=== PATIENT | female | born 1955 | race African-American/Black ===

== ENCOUNTER 2024-06-23 15:42 | Outpatient (CLI) | payer OTHER, MEDICAID, SELFPAY ==
[2024-06-23 16:06] LABS: Basophils Percent Auto 0.2 % (0.2-1.2); Eosinophils Absolute Auto 0.1 K/mm3 (0-0.3); Eosinophils Percent Auto 1.2 % (0-4.4); Hematocrit 36.7 % (37.0-47.0); Hemoglobin 11.7 g/dL (12.0-15.0); Immature Granulocyte Absolute 0.01 K/mm3 (0.00-0.031); Immature Granulocyte Percent A 0.2 % (0-0.5); Lymphocytes Absolute Auto 2.35 K/mm3 (0.9-3.2); Lymphocytes Percent Auto 48.6 % (18.3-44.2); Mean Corpuscular HGB Conc 31.9 g/dl (32-36); Mean Corpuscular Hemoglobin 30.8 pg (26-34); Mean Corpuscular Volume 96.6 fl (80-100); Mean Platelet Volume 8.9 fl (7.4-10.4); Monocytes Absolute Auto 0.4 K/mm3 (0.1-0.6); Monocytes Percent Auto 8.7 % (2.6-8.5); Neutrophils Percent Auto 41.1 % (45.5-73.1); Platelet Count Result 269 k/mm3 (150-375); Red Cell Distribution Width 13.9 % (11.5-14.5); White Blood Count 4.8 K/mm3 (4.5-10.0)
[2024-06-23 16:19] LABS: Alanine Aminotransferase 11 U/L (6-35); Albumin Level 4.5 g/dL (3.5-5.1); Alkaline Phosphatase 94 U/L (38-126); Anion Gap 7 mmol/L (4-12); Aspartate Amino Transferase 21 U/L (14-36); Bilirubin,Total 0.3 mg/dL (0.2-1.3); Blood Urea Nitrogen 10 mg/dL (7-17); Calcium 9.6 mg/dL (8.4-10.2); Carbon Dioxide 30 mmol/L (22-30); Chloride 100 mmol/L (98-107); Cholesterol 224 mg/dL (0-200); Estimated Glomerular Filt Rate > 60; Glucose 84 mg/dL (65-110); HDL Direct 62 mg/dL; Potassium 4.1 mmol/L (3.4-5.0); Sodium 137 mmol/L (137-145); Triglycerides 111 mg/dL (<150)
[2024-06-23 16:30] LABS: LDL Cholesterol Direct 112 mg/dL
[2024-06-23 16:48] LABS: Total Triiodothyronine (T3) 1.14 NG/ML (0.97-1.69)
== END 2024-06-23 15:43 | disposition home or self-care (01) ==
PROVIDERS: PCP Family Medicine; Visit Provider Family Medicine
DX: R53.83 Other fatigue (principal); E78.5 Hyperlipidemia, unspecified
CPT/HCPCS: 36415; 80053; 80061; 84439; 84443; 84480; 85025

== ENCOUNTER 2024-07-14 10:16 | Outpatient (CLI) | payer OTHER, SELFPAY ==
--- NOTE | ~2024-07-14 | MR_ITS ---
MRI of the right knee Clinical history: Injury Technique: Coronal proton density and proton density-weighted images, sagittal proton-density and T2 fat-sat images, and axial proton-density fat-saturated images were acquired. Findings: Anterior and posterior cruciate ligaments are intact. Medial collateral ligament and the la teral collateral ligament complex are intact. Popliteus tendon is intact. Medial and lateral menisci are intact, without evidence of tear. There is diffuse mild to moderate tricompartmental chondral thinning. Bone marrow signals are unremar kable. Extensor mechanism is intact. No joint effusion. Tiny Aaron's cyst. Impression: Mild to moderate diffuse chondral thinning. Tiny Aaron's cyst. No acute abnormality evident. Reviewed, dictated and finalized at location M. SE MACHINE OPERATOR Impression: Mild to moderate diffuse chondral thinning. Tiny Aaron's cyst. No acute abnormality evident.
== END 2024-07-14 10:17 | disposition home or self-care (01) ==
LOC: ANHIMG 10:22
PROVIDERS: PCP Family Medicine; Visit Provider Orthopaedic Surgery
DX: S89.91XA Unspecified injury of right lower leg, initial encounter (principal); X58.XXXA Exposure to other specified factors, initial encounter
CPT/HCPCS: 73721

== ENCOUNTER 2025-02-17 12:53 | Outpatient (CLI) | payer MEDICARE, MEDICAID, SELFPAY ==
--- NOTE | ~2025-02-17 | XR_ITS ---
XR foot LT min 3V 02/17/2025 13:42 Indication: Left foot pain. Procedure: 4 views left foot Comparison: No prior studies for comparison. Findings: There is fusion of the first and fifth phalanges. There is a deformity of the fourth metata rsal head which may be due to remote trauma or developmental disorder. No acute fracture is identifie d. There are degenerative calcaneal enthesophytes. Lisfranc joint intact. No foreign bodies. Impression: 1: No acute bone or joint abnormality. Reviewed, dictated and finalized at location B. Impression: 1: No acute bone or joint abnormality.
--- OUTSIDE RECORDS SUMMARY | 2025-02-17 13:10 | XMS_ITS | Clinical Summary ---
Author Organization 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 Gender Identity Not on file Sexual Orientation Not on file Plan of Treatment Health Maintenance Due Date Last Done Comments Hepatitis C Virus (HCV) Screening 1955 TdaP Immunization 1955 Colonoscopy 1999 Colorectal Cancer Screening 1999 Cologuard 02/08/2004 Immunochemical Fecal Occult Blood 02/08/2004 Zoster Immunization (1 of 2) 02/08/2004 SARS-COV-2 Immunization ( season) 2024 08/08/2021, 11/20/2020, 10/26/2020 Influenza Immunization (Seas on Ended) 2025 09/28/2020, 06/17/2020 Pneumococcal Immunization (5 0+ years) (3 of 3 - PCV20 or PCV21) 09/28/2025 09/28/2020, 07/25/2014 Respiratory Syncytial Virus (RSV) Immunization (Adult) (1 - 1-dose 75+ series) 2029 Pneumococcal Immunization Combined Discontinued 09/28/2020, 07/25/2014 Hepatitis B Immunization Aged Out No longer eligible based on patient's age to complete this topic Human Papillomavirus (HPV) Immunization Aged Out No longer eligible based on patient's age to complete this topic Meningococcal Immunization (ACWY) Aged Out No longer eligible based on patient's age to complete this topic Rotavirus Immunization Aged Out No lo nger eligible based on patient's age to complete this topic
--- OUTSIDE RECORDS SUMMARY | 2025-02-17 13:10 | XMS_ITS | Data Portability ---
Author Organization EDITH Charley WRIGHT Address [address] [facility] [place] [address] Care Team Providers Care Brusher Machine Name Role Phone GINANORAMARA Primary Care Provider Unavailab le Assessment No assessment recorded. Plan of Treatment Reminders Order Date Submit Date Provider Last Modified By Organization Details Last Modified Time Details Appointments None recorded. Lab TSH + free T4, serum 2020 [facility], [address] [place] [address], [address], [place], [address], 13:11:40 HIV 1+2 AB + HIV 1 p24 Ag, qualitativ e immunoassa y, serum 2020 021 [facility], [address] [place] [address], [address], [place], [address], 13:11:45 HbA1c (hemoglobi n A1c), blood 2020 021 [facility], [address] [place] [address], [address], [place], [address], 13:11:44 vitamin B12 + folate, serum or blood 2020 [address] [facility], [address] [place] [address], [address], [place], [address], 13:11:43 urinalysis , complete 2020 021 [facility], [address] [place] [address] [place], [address], [place], [address], 13:11:43 CBC w/ auto diff 2020 [facility], [address] [facility], [address], [place], [address], 13:11:41 CMP, serum or plasma 2020 [facility], [address] [facility], [address], [place], [address], 13:11:42 SARS CoV 2 RNA (COVID-19) , QL, grants assistant-PCR, respirator y specimen 2020 [facility] (Lab), [address] [place], [address], 16:55:36 Referral None recorded. Procedures None recorded. Surgeries None recorded. Imaging XR, foot 2020 [facility] (Rad), [address], [place], [address], 10:49:58 MAMMO, screening, digital, bilateral 2020 [facility] Scheduling, [address] [facility], [place], [address], 2 10:00:32 US, thyroid 2020 [facility] Scheduling, [address] [facility], [place], [address], 11:16:08 LDCT, chest, for lung cancer screening - Please call patient to schedule 2020 [facility] Scheduling, [address] [facility] [address], [place], [address], 2 05:01:25 spirometry , pre and post bronchodil ation 2020 021 [email or web address] [facility] (Rad), [address], [place], [address], 2 09:59:59 PFT, pulmonary stress test 2020 021 [email or web address] [facility] (Rad), [address], [place], [address], 2 10:00:00 US, echocardio gram, transthora cic, complete, w/ color flow 2020 021 [email or web address] [facility] (Rad), [address], [place], [address], 13:02:53 Medication Orders gabapentin 300 mg capsule 2020 021 [facility] [id number] [place] [address], [address], 10:48:53 gabapentin 100 mg capsule 2020 021 [id number], [address] [place], [place], [id number], 10:19:59 ibuprofen 600 mg tablet 2020 021 [facility] [address] [place] [address], [address], 11:14:14 Patient TargetsNo targets recorded. Patient Instructions Encounter Date Encounter Id Patient Instructions Last Modified By Organization Details Last Modified Time 02/11/2021 [id number] echocardiogram info [email or web address] Not available 02/11/2021 11:28:10 07/11/2021 [id number] plantar warts: care instructions fharry Not available 07/11/2021 11:19:34 toenail fungus: care instructions fharry Not available 07/11/2021 10:19:52 07/25/2021 [id number] plantar warts: care instructions fharry Not available 07/25/2021 10:48:48 toenail fungus: care instructions fharry Not available 07/25/2021 10:48:48 Reason for Referral None Reported. Results Created Date Observation Date Name Description Value Unit Range Abnormal Flag Note LastModifiedBy Organization Detail LastModifiedTime 03/26/2003/27/2021 TSH+F REE T4 TSH 0.857 uIU/m L 0.450- 4.500 Not Available [facility] ([facility]) [address] [place], [address], 03/27/2021 13:11:40 03/26/2003/27/2021 TSH+F REE T4 T4,free(dire ct) 0.99 NG/dL 0.82-1 .77 Not Available [facility] ([facility]) [address] [place], [address], 03/27/2021 13:11:40 03/26/20 21 03/27/2021 CBC WITH DIFFE RENTI AL/PL ATELE T WBC 6.0 x10e3 /uL 3.4-10 .8 Not Available [facility] ([facility]) [address] [place], [address], 03/27/2021 13:11:41 03/26/2003/27/2021 CBC WITH DIFFE RENTI AL/PL ATELE T RBC 3.81 x10e6 /uL 3.77-5 .28 Not Available [facility] ([facility]) [address] [place], [address], 03/27/2021 13:11:41 03/26/20 21 03/27/2021 CBC WITH DIFFE RENTI AL/PL ATELE T hemoglobin 10.9 g/dL 11.1-1 5.9 below low normal Not Available [facility] ([facility]) [address] [place], [address], 03/27/2021 13:11:41 03/26/20 21 03/27/2021 CBC WITH DIFFE RENTI AL/PL ATELE T hematocrit 34.3 % 34.0-4 6.6 Not Available [facility] ([facility]) [address] [place], [address], 03/27/2021 13:11:41 03/26/20 21 03/27/2021 CBC WITH DIFFE RENTI AL/PL ATELE T MCV 90 fL 79-97 Not Available [facility] ([facility]) [address] [place], [address], 03/27/2021 13:11:41 03/26/20 21 03/27/2021 CBC WITH DIFFE RENTI AL/PL ATELE T MCH 28.6 pg 26.6-3 3.0 Not Available [facility] ([facility]) [address] [place], [address], 03/27/2021 13:11:41 03/26/20 21 03/27/2021 CBC WITH DIFFE RENTI AL/PL ATELE T MCHC 31.8 g/dL 31.5-3 5.7 Not Available [facility] ([facility]) [address] [place], [address], 03/27/2021 13:11:41 03/26/20 21 03/27/2021 CBC WITH DIFFE RENTI AL/PL ATELE T RDW 13.7 % 11.7-1 5.4 Not Available [facility] ([facility]) [address] [place], [address], 03/27/2021 13:11:41 03/26/20 21 03/27/2021 CBC WITH DIFFE RENTI AL/PL ATELE T platelets 335 x10e3 /uL 150-45 0 Not Available [facility] ([facility]) [address] [facility], [place], [address], 03/27/2021 13:11:41 03/26/20 21 03/27/2021 CBC WITH DIFFE RENTI AL/PL ATELE T neutrophils 41 % not estab. Not Available [facility] ([facility]) [address] [facility], [place], [address], 03/27/2021 13:11:41 03/26/20 21 03/27/2021 CBC WITH DIFFE RENTI AL/PL ATELE T lymphs 51 % not estab. Not Available [facility] ([facility]) [address] [facility], [place], [address], 03/27/2021 13:11:41 03/26/20 21 03/27/2021 CBC WITH DIFFE RENTI AL/PL ATELE T monocytes 5 % not estab. Not Available [facility] ([facility]) [address] [facility], [place], [address], 03/27/2021 13:11:41 03/26/20 21 03/27/2021 CBC WITH DIFFE RENTI AL/PL ATELE T eos 2 % not estab. Not Available [facility] ([facility]) [address] [facility], [place], [address], 03/27/2021 13:11:41 03/26/20 21 03/27/2021 CBC WITH DIFFE RENTI AL/PL ATELE T basos 1 % not estab. Not Available [facility] ([facility]) [address] [place], [address], 03/27/2021 13:11:41 03/26/20 21 03/27/2021 CBC WITH DIFFE RENTI AL/PL ATELE T immature cells BROADCAST MAINTENANCE TECHNICIAN Not Available [facility] ([facility]) [address] [facility], [place], [address], 03/27/2021 13:11:41 03/26/20 21 03/27/2021 CBC WITH DIFFE RENTI AL/PL ATELE T neutrophils (absolute) 2.5 x10e3 /uL 1.4-7. 0 Not Available [facility] ([facility]) [address] [facility], [place], [address], 03/27/2021 13:11:41 03/26/20 21 03/27/2021 CBC WITH DIFFE RENTI AL/PL ATELE T lymphs (absolute) 3.1 x10e3 /uL 0.7-3. 1 Not Available [facility] ([facility]) [address] [place], [address], 03/27/2021 13:11:41 03/26/20 21 03/27/2021 CBC WITH DIFFE RENTI AL/PL ATELE T monocytes(ab solute) 0.3 x10e3 /uL 0.1-0. 9 Not Available [facility] ([facility]) [address] [place], [address], 03/27/2021 13:11:41 03/26/20 21 03/27/2021 CBC WITH DIFFE RENTI AL/PL ATELE T eos (absolute) 0.1 x10e3 /uL 0.0-0. 4 Not Available [facility] ([facility]) [address] [place], [address], 03/27/2021 13:11:41 03/26/20 21 03/27/2021 CBC WITH DIFFE RENTI AL/PL ATELE T baso (absolute) 0.0 x10e3 /uL 0.0-0. 2 Not Available [facility] ([facility]) [address] [place], [address], 03/27/2021 13:11:41 03/26/20 21 03/27/2021 CBC WITH DIFFE RENTI AL/PL ATELE T immature granulocytes 0 % not estab. Not Available [facility] ([facility]) [address] [facility], [place], [address], 03/27/2021 13:11:41 03/26/20 21 03/27/2021 CBC WITH DIFFE RENTI AL/PL ATELE T immature grans (abs) 0.0 x10e3 /uL 0.0-0. 1 Not Available [facility] ([facility]) [address] [facility], [place], [address], 03/27/2021 13:11:41 03/26/20 21 03/27/2021 CBC WITH DIFFE RENTI AL/PL ATELE T NRBC BROADCAST MAINTENANCE TECHNICIAN Not Available [facility] ([facility]) [address] [facility], [place], [address], 03/27/2021 13:11:41 03/26/20 21 03/27/2021 CBC WITH DIFFE RENTI AL/PL ATELE T hematology comments: BROADCAST MAINTENANCE TECHNICIAN Not Available [facility] ([facility]) [address] [facility], [place], [address], 03/27/2021 13:11:41 03/26/20 21 03/27/2021 COMP. METAB OLIC PANEL (14) glucose 72 mg/dL 65-99 Not Available [facility] ([facility]) [address] [facility], [place], [address], 03/27/2021 13:11:42 03/26/20 21 03/27/2021 COMP. METAB OLIC PANEL (14) BUN 6 mg/dL 8-27 below low normal Not Available [facility] ([facility]) [address] [facility], [place], [address], 03/27/2021 13:11:42 03/26/20 21 03/27/2021 COMP. METAB OLIC PANEL (14) creatinine 0.67 mg/dL 0.57-1 .00 Not Available [facility] ([facility]) [address] [facility], [place], [address], 03/27/2021 13:11:42 03/26/20 21 03/27/2021 COMP. METAB OLIC PANEL (14) eGFR if nonafricn AM 91 mL/mi n/1.7 3 >59 Not Available [facility] ([facility]) [address] [place], [address], 03/27/2021 13:11:42 03/26/20 21 03/27/2021 COMP. METAB OLIC PANEL (14) eGFR if africn AM 105 mL/mi n/1.7 3 >59 Lab taqueria curre ntly repor ts eGFR in compl iance with the curre nt recom menda tions of the [employer] [facility] ation . [facility] will updat e repor ting as new guide lines are publi shed from the NKF-A SN Task force . Not Available [facility] ([facility]) [address] [place], [address], 03/27/2021 13:11:42 03/26/20 21 03/27/2021 COMP. METAB OLIC PANEL (14) BUN/creatini ne ratio 9 12-28 below low normal Not Available [facility] ([facility]) [address] [place], [address], 03/27/2021 13:11:42 03/26/20 21 03/27/2021 COMP. METAB OLIC PANEL (14) sodium 141 mmol/ L 134-14 4 Not Available [facility] ([facility]) [address] [place], [address], 03/27/2021 13:11:42 03/26/20 21 03/27/2021 COMP. METAB OLIC PANEL (14) potassium 4.0 mmol/ L 3.5-5. 2 Not Available [facility] ([facility]) [address] [place], [address], 03/27/2021 13:11:42 03/26/20 21 03/27/2021 COMP. METAB OLIC PANEL (14) chloride 104 mmol/ L 96-106 Not Available [facility] ([facility]) [address] [facility] [place], [address], 03/27/2021 13:11:42 03/26/20 21 03/27/2021 COMP. METAB OLIC PANEL (14) carbon dioxide, total 23 mmol/ L 20-29 Not Available [facility] ([facility]) [address] [facility] [place], [address], 03/27/2021 13:11:42 03/26/20 21 03/27/2021 COMP. METAB OLIC PANEL (14) calcium 9.5 mg/dL 8.7-10 .3 Not Available [facility] ([facility]) [address] [facility] [place], [address], 03/27/2021 13:11:42 03/26/20 21 03/27/2021 COMP. METAB OLIC PANEL (14) protein, total 7.3 g/dL 6.0-8. 5 Not Available [facility] ([facility]) [address] [facility] [place], [address], 03/27/2021 13:11:42 03/26/20 21 03/27/2021 COMP. METAB OLIC PANEL (14) albumin 4.2 g/dL 3.8-4. 8 Not Available [facility] ([facility]) [address] [facility] [place], [address], 03/27/2021 13:11:42 03/26/20 21 03/27/2021 COMP. METAB OLIC PANEL (14) globulin, total 3.1 g/dL 1.5-4. 5 Not Available [facility] ([facility]) [address] [facility] [place], [address], 03/27/2021 13:11:42 03/26/20 21 03/27/2021 COMP. METAB OLIC PANEL (14) A/G ratio 1.4 1.2-2. 2 Not Available [facility] ([facility]) [address] [facility] [place], [address], 03/27/2021 13:11:42 03/26/20 21 03/27/2021 COMP. METAB OLIC PANEL (14) bilirubin, total 0.3 mg/dL 0.0-1. 2 Not Available [facility] ([facility]) [address] [facility] [place], [address], 03/27/2021 13:11:42 03/26/20 21 03/27/2021 COMP. METAB OLIC PANEL (14) alkaline phosphatase 106 IU/L 48-121 Not Available [facility]) [address] [facility] [place], [address], 03/27/2021 13:11:42 03/26/20 21 03/27/2021 COMP. METAB OLIC PANEL (14) AST (SGOT) 14 IU/L 0-40 Not Available [facility] ([facility]) [address] [facility] [place], [address], 03/27/2021 13:11:42 03/26/20 21 03/27/2021 COMP. METAB OLIC PANEL (14) ALT (SGPT) 10 IU/L 0-32 Not Available [facility] ([facility]) [address] [place], [address], 03/27/2021 13:11:42 03/26/20 21 03/27/2021 URINA LYSIS , COMPL ETE specific gravity 1.022 1.005- 1.030 Not Available [facility] ([facility]) [address] [place], [address], 03/27/2021 13:11:43 03/26/20 21 03/27/2021 URINA LYSIS , COMPL ETE pH 5.5 5.0-7. 5 Not Available [facility] ([facility]) [address] [place], [address], 03/27/2021 13:11:43 03/26/20 21 03/27/2021 URINA LYSIS , COMPL ETE urine-color Yellow yellow Not Available [facility] ([facility]) [address] [place], [address], 03/27/2021 13:11:43 03/26/20 21 03/27/2021 URINA LYSIS , COMPL ETE appearance Cloudy clear abnormal Not Available [facility] ([facility]) [address] [place], [address], 03/27/2021 13:11:43 03/26/20 21 03/27/2021 URINA LYSIS , COMPL ETE WBC esterase 2+ negati ve abnormal Not Available [facility] ([facility]) [address] [place], [address], 03/27/2021 13:11:43 03/26/20 21 03/27/2021 URINA LYSIS , COMPL ETE protein Trace negati ve/tra ce Not Available [facility] ([facility]) [address] [place], [address], 03/27/2021 13:11:43 03/26/20 21 03/27/2021 URINA LYSIS , COMPL ETE glucose Negati ve negati ve Not Available [facility] ([facility]) [address] [place], [address], 03/27/2021 13:11:43 03/26/20 21 03/27/2021 URINA LYSIS , COMPL ETE ketones Negati ve negati ve Not Available [facility] ([facility]) [address] [place], [address], 03/27/2021 13:11:43 03/26/20 21 03/27/2021 URINA LYSIS , COMPL ETE occult blood Trace negati ve abnormal Not Available [facility] ([facility]) [address] [place], [address], 03/27/2021 13:11:43 03/26/20 21 03/27/2021 URINA LYSIS , COMPL ETE bilirubin Negati ve negati ve Not Available [facility] ([facility]) [address] [place], [address], 03/27/2021 13:11:43 03/26/2003/27/2021 URINA LYSIS , COMPL ETE urobilinogen ,semi-qn 1.0 mg/dL 0.2-1. 0 Not Available [facility] ([facility]) [address] [place], [address], 03/27/2021 13:11:43 03/26/20 21 03/27/2021 URINA LYSIS , COMPL ETE nitrite, urine Negati ve negati ve Not Available [facility] ([facility]) [address] [place], [address], 03/27/2021 13:11:43 03/26/20 21 03/27/2021 URINA LYSIS , COMPL ETE microscopic examination See below: Micro scopi c was indic ated and was perfo rmed. Not Available [facility] ([facility]) [address] [facility], [place], [address], 03/27/2021 13:11:43 03/26/2003/27/2021 URINA LYSIS , COMPL ETE WBC >30 /hpf 0 - 5 abnormal Not Available [facility] ([facility]) [address] [place], [address], 03/27/2021 13:11:43 03/26/2003/27/2021 URINA LYSIS , COMPL ETE RBC 0-2 /hpf 0 - 2 Not Available [facility] ([facility]) [address] [place], [address], 03/27/2021 13:11:43 0703/27/2021 URINA LYSIS , COMPL ETE epithelial cells (non renal) 0-10 /hpf 0 - 10 Not Available [facility] ([facility]) [address] [facility], [place], [address], 03/27/2021 13:11:43 03/26/20 21 03/27/2021 URINA LYSIS , COMPL ETE epithelial cells (renal) BROADCAST MAINTENANCE TECHNICIAN Not Available [facility] ([facility]) [address] [facility], [place], [address], 03/27/2021 13:11:43 03/26/20 21 03/27/2021 URINA LYSIS , COMPL ETE casts None seen /lpf none seen Not Available [facility] ([facility]) [address] [facility], [place], [address], 03/27/2021 13:11:43 03/26/20 21 03/27/2021 URINA LYSIS , COMPL ETE cast type BROADCAST MAINTENANCE TECHNICIAN Not Available [facility] ([facility]) [address] [facility], [place], [address], 03/27/2021 13:11:43 03/26/2003/27/2021 URINA LYSIS , COMPL ETE crystals BROADCAST MAINTENANCE TECHNICIAN Not Available [facility] ([facility]) [address] [facility], [place], [address], 03/27/2021 13:11:43 03/26/2003/27/2021 URINA LYSIS , COMPL ETE crystal type BROADCAST MAINTENANCE TECHNICIAN Not Available [facility]) [address] [facility], [place], [address], 03/27/2021 13:11:43 03/26/20 21 03/27/2021 URINA LYSIS , COMPL ETE mucus threads BROADCAST MAINTENANCE TECHNICIAN Not Available [facility] ([facility]) [address] [place], [address], 03/27/2021 13:11:43 03/26/20 21 03/27/2021 URINA LYSIS , COMPL ETE bacteria Few none seen/f ew Not Available [facility] ([facility]) [address] [facility], [place], [address], 03/27/2021 13:11:43 03/26/20 21 03/27/2021 URINA LYSIS , COMPL ETE yeast BROADCAST MAINTENANCE TECHNICIAN Not Available [facility] ([facility]) [address] [place], [address], 03/27/2021 13:11:43 03/26/20 21 03/27/2021 URINA LYSIS , COMPL ETE trichomonas BROADCAST MAINTENANCE TECHNICIAN Not Available [facility] ([facility]) [address] [place], [address], 03/27/2021 13:11:43 03/26/20 21 03/27/2021 URINA LYSIS , COMPL ETE comment BROADCAST MAINTENANCE TECHNICIAN Not Available [facility] ([facility]) [address] [place], [address], 03/27/2021 13:11:43 03/26/20 21 03/27/2021 URINA LYSIS , COMPL ETE microscopic examination BROADCAST MAINTENANCE TECHNICIAN Not Available [facility]) [address] [place], [address], 03/27/2021 13:11:43 03/26/20 21 03/27/2021 VITAM IN B12 AND FOLAT E vitamin B12 428 pg/mL 232-12 45 Not Available [facility] ([facility]) [address] [place], [address], 03/27/2021 13:11:43 03/26/20 21 03/27/2021 VITAM IN B12 AND FOLAT E folate (folic acid), serum 5.7 NG/mL >3.0 A serum folat e holly ntrat ion of less than 3.1 ng/mL is consi dered to repre sent clini manav defic iency . Not Available [facility] ([facility]) [address] [place], [address], 03/27/2021 13:11:43 03/26/20 21 03/27/2021 HEMOG LOBIN A1C hemoglobin A1C 5.9 % 4.8-5. 6 above high normal Predi abete s: 5.7 - 6.4 Diabe mark: >6.4 Glyce nereyda contr ol for adult s with diabe mark: <7.0 Not Available [facility] ([facility]) [address] [facility], [place], [address], 03/27/2021 13:11:44 03/26/20 21 03/27/2021 HIV AG/AB WITH REFLE X HIV screen 4TH generation wrfx Non Reacti ve non reacti ve Not Available [facility] ([facility]) [address] [facility], [place], [address], 03/27/2021 13:11:45 02/07/20 21 01/23/2021 CT, thora cic spine , w/o contr ast No observ ation record ed. [email or web address] Not Available 2020 15:57:50 02/07/20 21 01/23/2021 CT, lumba r spine , w/o contr ast No observ ation record ed. Not Available 2020 16:50:32 02/07/20 21 01/23/2021 XR, shoul leslye, 2 or more view No observ ation record ed. [email or web address] Not Available 2020 16:50:33 03/19/20 21 02/12/2021 MRI, cervi manav spine , w/o contr ast No observ ation record ed. [facility] [address] [place], [address], 03/20/2021 14:24:12 03/19/20 21 02/12/2021 MRI, lumba r spine , w/o contr ast No observ ation record ed. [facility] [address] [place], [address], 03/20/2021 14:24:13 03/27/20 21 03/26/2021 elect rocbuster diogr am No observ ation record ed. [facility] Not Available 2020 18:18:10 03/28/20 21 03/26/2021 elect rocbuster diogr am No observ ation record ed. [facility] Not Available 2020 12:20:43 07/11/20 21 07/11/2021 XR, foot Examin ation: RIGHT FOOT RADIOG RAPH Access ion: [id number] Exam date/t juju: 021 9:29 AM Reason For Exam: [id number]: Pain in right foot Compar olivia: 015 Techni que: 3 views Findin gs: No acute soft tissue swelli ng. Postsu rgical change s throug hout the foot. Old healed injuri es of the first and fifth metata rsal bones. No eviden ce of an acute fractu re. Osseou s fusion of the first interp halang eal joint with previo us remova l of hardwa re. No acute findin gs. ===== IMPRES USHA:= ==== Multif ocal postsu rgical change s, no acute findin gs. READ BY: ARLYN MERINO MD Date: 2020 09:[address], [address], 07/12/2021 12:59:25 Result Notes Documentation Provider Name and Address Organization Details Recorded Time Xr, Foot : Examination: RIGHT FOOT RADIOGRAPH Exam date/time: 07/11/2021 9:29 AM Reason For Exam: [id number]: Pain in right foot Comparison: 05/21/2015 Technique: 3 views Findings: No acute soft tissue swelling. Postsurgical changes throughout the foot. Old healed injuries of the first and fifth metatarsal bones. No evidence of an acute fracture. Osseous fusion of the first interphalangeal joint with previous removal of hardware. No acute findings. ===== IMPRESSION:===== Multifocal postsurgical changes, no acute findings. READ BY: TONI MERINO MDEEN Date: 07/11/2021 09:48 OCTAVIA ANDERSON, DPM [address] [place], [address], [place] [facility] 07/12/2021 12:59:25 Problems Name Problem SNOMED Code Status Onset Date Resolution Date Notes Provider Name and Address Organization Details Recorded Time Knee pain Completed 09/28/2020 Warren Wells PA-C Attn: Accounting ,[address] [facility], [place], [address] , [facility] 11:58:13 Gastroeso phageal reflux disease 610204827 Completed 09/28/2020 Warren Wells PA-C Attn: Accounting ,[address] [facility], [place], [address] , [facility] - [facility] 12:00:06 Bipolar disorder [id number] Active Not Available [facility] 15:52:49 Chronic obstructi ve pulmonary disease 55035144 Active Not Available [facility] 15:52:49 Prediabet es 735511215 Active 2020 Not Available [facility] 15:52:49 History of cocaine abuse [id number] 9106 Active 2020 Not Available [facility] 15:52:49 Noncompli ance with treatment 2331007 Active 2020 Warren Wells PA-C Attn: Accounting ,[address] [facility], [place], [address] , [facility] - [facility] 12:17:53 Spasm [id number] Completed 09/28/2020 Warren Wells PA-C Attn: Accounting ,[address] [facility], [place], [address] , [facility] - [facility] 12:00:21 Dysuria 69384183 Completed 09/28/2020 Warren Wells PA-C Attn: Accounting ,[address] [facility], [place], [address] , [facility] - SI 11:32:44 Urinary tract infectiou s disease 44490843 Completed 09/28/2020 Warren Wells PA-C Attn: Accounting ,[address] [facility], [place], [place], [address] [place] [address] , [facility] - [place] 11:58:26 Trichomon al vulvovagi nitis 78984754 Completed 09/28/2020 Warren Wells PA-C Attn: Accounting ,[address] [facility], [place], [place], [address] [place] [address] , [facility] - [facility] 11:58:22 Hemoptysi s 56027093 Completed 09/28/2020 Warren Wells PA-C Attn: Accounting ,[address] [place], [place], [address] [place] [address] , [facility] - [facility] 11:58:10 Nicotine dependenc e 70379700 Active Not Available [facility] 15:52:49 Abnormal weight loss 614791239 Active Not Available [facility] 15:52:49 Dyspnea 814787707 Completed 09/28/2020 Warren Wells PA-C Attn: Accounting ,[address] [facility], [place], [place], [address] [place] [address] , [facility] - [facility] 11:58:07 Night sweats 58554078 Completed 09/28/2020 Warren Wells PA-C Attn: Accounting ,[address] [facility], [place], [place], [address] [place] [address] , [facility] - [facility] 12:00:17 Cramp in lower limb 810161165 Completed 09/28/2020 Warren Wells PA-C Attn: Accounting ,[address] [facility], [place], [place], [address] [place] [address] , [facility] - [facility] 11:58:04 Essential hypertens ion 01665531 Completed 09/28/2020 Warren Wells PA-C Attn: Accounting ,[address] [facility], [place], [place], [address] [place] [address] , [facility] - [facility] 12:00:08 Low back pain 459806032 Completed 09/28/2020 Warren Wells PA-C Attn: Accounting ,[address] [facility], [place], [address] , [place] 11:58:15 Problem Notes None recorded. Procedures Surgical History Date Name Laterality Status Provider Name and Address Organization Details Recorded Time 07/25/20 21 Wart Topical Procedure completed OCTAVIA ANDERSON DPM [address], [place], [address], [place] [facility] 07/25/2021 10:46:52 07/11/20 21 Nail Debridement completed OCTAVIA ANDERSON DPM [address], [place], [address], [place] [facility] 07/11/2021 11:15:57 07/11/20 21 Wart Topical Procedure completed OCTAVIA ANDERSON DPM [address], [place], [address], [place] [facility] 07/11/2021 11:18:02 01/26/20 21 Nail Debridement completed OCTAVIA ANDERSON DPM [address], [place], [address], [place] [facility] 01/28/2021 09:52:56 11/28/19 21 CORRECTION OF HAMMERTOE (SURG) completed OCTAVIA ANDERSON DPM [address], [place], [address], [place] [facility] 12/10/2020 16:25:17 11/10/19 21 Nail Debridement completed OCTAVIA ANDERSON DPM [address], [place], [address], [place] [facility] 11/09/2020 14:36:46 09/07/18 78 Total hysterectomy completed Warren Wells PA-C Attn: Accounting,[address] [facility], [place], [address], [place] [facility] 09/28/2020 12:02:47 Xcapsl ctrc rmvl cplx wo ecp completed Warren Wells PA-C Attn: Accounting,[address] [facility], [place], [address], [place] [facility] 09/28/2020 12:02:17 excision of bunion completed Warren Wells PA-C Attn: Accounting,[address], [place], [address], [facility] 09/28/2020 12:02:23 Imaging Results None recorded. Procedure Notes None recorded. Medical Equipment None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
--- OUTSIDE RECORDS SUMMARY | 2025-02-17 13:10 | XMS_ITS ---
Author Organization [facility] Address [address] [place], [place] [id number] Care Team Providers Care Carburetor Specialist Name Role Phone MARINA MEDRANO Unavailable [phone] Jacinto Johnson Unavailable Unavailable REASON FOR VISIT *General care Encounters Encounter Location Date Provider Diagnosis [facility] [address] [facility] [address] [place], [place] [id number] 10/07/2024 MARINA MEDRANO Plan Of Treatment No Information Progress Notes * Chika PAVONB: (70 yo Other)Acc No.[id number]:10/07/2024 Patient: Shawn HASSAN Provider: Leo Medrano DPM :1955 A ge:69 Y S ex:Unknown Date:10/07/2024 Address:[address], [place] Subjective: * Chief Complaints: * 1 . *General care. * Medical History: Objective: * Vitals: Assessment: Plan: * Treatment: * Billing Information: * Visit Code: * Procedure Codes: * Electronic signature of MARINA MEDRANO DPM on 02/17/2025 at 01:09 PM CDT Sign off status: Pending * Provider: Leo Medrano DPM Date: 0 10/07/2024 Generated for Leti patel/Ashley/eTransmitting on: 0 02/17/2025 01:09 PM CDT
--- OUTSIDE RECORDS SUMMARY | 2025-02-17 13:10 | XMS_ITS | Patient Health Record ---
Author Organization [facility] Address [address] [facility] [address] [place], [place] [id number] Care Team Providers Care Corporate Real Estate Specialist Name Role Phone MARINA CLAROS Unavailable [phone] Jacinto Johnson Unavailable Unavailable INGE LEE Unavailable [phone] Allergies No Known Allergies Reason For Referral No Information Encounters Encounter Location Date Provider Diagnosis [facility] [place] [address] [facility] [address] [place], [place] [address] 07/06/2024 INGE LEE 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, bilateral legs I70.203 ; Tinea unguium B35.1 ; Acquired keratosis [keratoderma] palmaris et plantaris L85.1 ; Other hammer toe(s) (acquired), right foot M20.41 ; Other hammer toe(s) (acquired), left foot M20.42 ; Flat foot [pes planus] (acquired), right foot M21.41 ; Flat foot [pes planus] (acquired), left foot M21.42 ; Pain in right toe(s) M79.674 and Pain in left toe(s) M79.675 Assessments Encounter Date Diagnosis (ICD Code) Assessment Notes Treatment Notes Treatment Clinical Notes Section Notes 07/06/2024 Tinea unguium (ICD-10 - B35.1) Aseptic debridement of elongated thickened nails x 10 using sterile nippers, nails were debrided in length and thickness by 30% utilizing a nail nipper without incident. The patient was educated regarding all treatment options that include topical and oral antifungal treatments. I discussed the options of taking a sample of the nail to confirm diagnosis. Nail clippings were not sent for pathology analysis. The patient was educated why and how the fungal infection evolved in their feet and the patient was given information regarding how to prevent further infection. The patient was told to keep feet dry and change socks. The patient was told to be careful with old shoes and excessive sweating. The patient was educated regarding both OTC and prescription treatments. 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 After removal of overlying extensive hyperkeratosis, healthy tissue was noted and care was taken to assure that no undermining or probing was present. It should be noted that no probing was noted and no infection or drainage was noted. 07/06/2024 Other hammer toe(s) (acquired), right foot (ICD-10 - M20.41) The patient was educated regarding how to mechanically stabilize their deformity. The patient was given education about shoe recommendations specific for the condition. The patient was educated about custom orthotics and how appropriate shoes and orthotics can prevent further worsening of the deformity. The patient was educated about how bad shoe habits can worsen the condition. NSAIDS, P.T., injections and other conservative treatments were discussed. Both surgical and non surgical treatments were discussed, but conservative options were emphasized. 07/06/2024 Other hammer toe(s) (acquired), left foot (ICD-10 - M20.42) 07/06/2024 Flat foot [pes planus] (acquired), right foot (ICD-10 - M21.41) Patient educated on etiology and treatment options for flexible flat foot deformity. Educated patient on how a flexible flat foot deformity can in turn result in pathology such as hammer toe, bunions, equinus, neuromas. Recommend use of custom foot inserts to help alleviate plantar peak pressures and accomodate for digital deformity to feet. 07/06/2024 Flat foot [pes planus] (acquired), left foot (ICD-10 - M21.42) 07/06/2024 Pain in right toe(s) (ICD-10 - M79.674) 07/06/2024 Pain in left toe(s) (ICD-10 - M79.675) Plan Of Treatment No Information Insurance Providers Payer Name Payer Address Payer Phone Subscriber Number Group Number Insured Name Patient Relationship to Insured Coverage Start Date Coverage End Date [facility] [address] [address] [place], [place] [id number] hSawn Ortiz Self - patient is the insured
--- OUTSIDE RECORDS SUMMARY | 2025-02-17 13:10 | XMS_ITS | Patient Health Record ---
Author Organization [facility] Address [address] [facility] [address] [place] [address] Care Team Providers Care Adult High School Instructor Name Role Phone BRANDON MONTAGUE, NICO Unavailable [phone] Reason For Referral No Information Medications Medication SIG (Take, Route, Frequency, Duration) Notes Start Date End Date Status Pantoprazole Sodium 40 MG 1 tablet Orall y Once a day for 30 day(s) 12/28/2019 Active Omeprazole 40 mg 1 capsule Orally Onc e a day for 30 day(s) 12/29/2018 Active Problems Problem Type SNOMED Code ICD Code Onset Dates Problem Status W/U Status Risk Notes Problem Gastro-esophagea l reflux disease without esophagitis ([id number]) Gastro-esophage al reflux disease without esophagitis (K21.9) Active confirmed Plan Of Treatment Pending Test Test Name Order Date COLONOSCOPY 11/18/2018 COLONOSCOPY 12/28/2019 EGD 11/18/2018 Gastric,,Biopsy 12/10/2018 Colon,,Polypectomy 01/06/2020 Insurance Providers Payer Name Payer Address Payer Phone Subscriber Number Group Number Insured Name Patient Relationship to Insured Coverage Start Date Coverage End Date [facility] [address] [address] [place] [address] [phone] [id number] BRIDGETTE PAVON Self - patient is the insured Medical (General) History Surgical History Surgery Date(Month/Year)
--- OUTSIDE RECORDS SUMMARY | 2025-02-17 13:10 | XMS_ITS | Referral Summary ---
Author Organization [facility] [place] [address] [facility] jef Address [address] [facility] [place] [address] Care Team Providers Care Medical Records Clerk Name Role Phone Jacinto Johnson MD Primary Care Provider [phone] [phone] Allergies Active Allergy Reactions Criticality Noted Date Comments Tramadol Itching Low 04/01/2023 Medications albuterol HFA (PROVENTIL HFA,VENTOLIN HFA,PROAIR HFA) 90 mcg/actuation inhalerIndications:Chron ic obstructive pulmonary disease, unspecified COPD type (HCC) Inhale 2 puffs every 6 (six) hours as needed for wheezing 3 each 4 09/11/19 23 Active methocarbamoL (ROBAXIN) 500 mg tablet Take 1 tablet (500 mg total) by mouth 4 (four) times a day 40 tablet 09/24/19 23 Active dicyclomine (BENTYL) 10 mg capsuleIndications:RUQ pain TAKE 1 CAPSULE BY MOUTH 4 TIMES A DAY NEEDED (ABDOMINAL PAIN OR CRAMPS) 90 capsule 05/31/20 23 Active atorvastatin (LIPITOR) 40 mg tabletIndications:Pure hypercholesterolemia Take 1 tablet (40 mg total) by mouth daily 90 tablet 1 06/02/20 23 Active budesonide-formoteroL (Symbicort) 160-4.5 mcg/actuation inhalerIndications:Chron ic obstructive pulmonary disease, unspecified COPD type (HCC) Inhale 2 puffs 2 (two) times a day 3 each 1 06/02/20 23 Active omeprazole (PriLOSEC) 20 mg capsuleIndications:Gastr oesophageal reflux disease, unspecified whether esophagitis present Take 1 capsule (20 mg total) by mouth daily 90 capsule 1 06/02/20 23 Active QUEtiapine (SEROquel) 200 mg tabletIndications:Bipola r affective disorder, remission status unspecified (HCC) Take 1 tablet (200 mg total) by mouth nightly 90 tablet 1 06/02/20 23 Active famotidine (PEPCID) 40 mg tabletIndications:Gastro esophageal reflux disease, unspecified whether esophagitis present TAKE 1 TABLET BY MOUTH EVERY DAY AT NIGHT 90 tablet 09/09/19 24 Active naproxen (NAPROSYN) 500 mg tablet Take 1 tablet (500 mg total) by mouth 2 (two) times a day with meals 30 tablet 04/30/20 24 Active Active Problems Problem Noted Date Diagnosed Date Medicare annual wellness visit, initial 06/02/20 Assessment & Plan (06/02/2023 1:22 PM CDT): Reviewed PMH & PHQ Screening PHQ-2 Total Score (If total score is 3 or more points, staff should administer the PHQ-9): 0 Hearing/vision screening reviewed, referrals placed as needed Fall risk reviewed Reviewed medications and supplements Specialists: needs to schedule with podiatry and vascular no evidence of cognitive impairment HCM: orders placed as needed Chronic cough 12/04/2022 Assessment & Plan (12/04/2022 2:25 PM CDT): Productive cough x 2 months Pt coughing significantly during exam, wheezing noted on lung auscultation Ordered chest xray, pt states she may go get the xray tomorrow zpack Prednisone taper Continue albuterol inhaler as needed as prescribed Follow up with PCP for persisting symptoms Go to ER if you develop shortness of breath, chest pain, high fever, or worsening symptoms Chest pain 10/04/2021 Overview (10/04/2021): Encouraged to schedule with cardiology Pure hypercholesterolemia 10/04/2021 Overview (10/04/2021): Reviewed lipids Start statin Assessment & Plan (06/02/2023 1:27 PM CDT): Recheck lipids Continue statin Gastroesophageal reflux disease 10/04/2021 Assessment & Plan (06/02/2023 1:19 PM CDT): Stable Continue omeprazole and pepcid, bentyl as needed Assessment & Plan (04/19/2022 9:15 AM CDT): Continue ppi Add pepcid Assessment & Plan (03/23/2022 1:38 PM CDT): Following with GI, reviewed note Continue ppi Abnormal weight loss 09/17/2021 Assessment & Plan (04/19/2022 9:17 AM CDT): Most consistent with 2/2 GI process given abdominal pain and diarrhea Following with GI, s/p EGD/colonoscopy, encouraged to call & schedule follow up after upcoming MRCP Also has upcoming breast cancer screening Lung cancer screening completed Assessment & Plan (03/23/2022 1:38 PM CDT): Upcoming mammogram, chest CT & MRCP Assessment & Plan (01/31/2022 10:51 AM CDT): Reviewed previous chest XR, CTAP, thyroid US & labs Advise follow up with GI re: dilated pancreatic duct Encouraged to get mammogram Assessment & Plan (01/05/2022 9:52 AM CDT): Currently stable Continue to monitor Encouraged to get mammogram Bipolar disorder 09/17/2021 Assessment & Plan (06/02/2023 1:20 PM CDT): Stable Continue 200mg seroquel Assessment & Plan (10/04/2021 11:31 AM FIBERGLASS CONTAINER WINDING OPERATOR): Encouraged to schedule with psychiatry Assessment & Plan (09/20/2021 10:55 AM FIBERGLASS CONTAINER WINDING OPERATOR): Denies suicidal ideation Restart seroquel Referral to psychiatry Chronic obstructive pulmonary disease 09/17/2021 Assessment & Plan (06/02/2023 1:34 PM CDT): Stable Continue symbicort daily and albuterol as needed Encouraged to quit smoking completely History of cocaine abuse 11/09/2020 Prediabetes 10/02/2020 Resolved Problems Problem Noted Date Diagnosed Date Resolved Date Nicotine dependence 09/17/2021 09/20/19 Immunizations Immunization Administration Dates Next Due Influenza, Quad, Adjuvantate d, Intramuscular 06/17/2020 Influenza, Quadrivalent, Hig h Dose, Preservative Free, Intrr 06/02/2023,09/11/2022,09/28/2020 Influenza, Unspecified 09/07/2020 Pneumococcal Conjugate PCV 13 09/28/2020 Pneumococcal Polysaccharide PPV23 10/04/2021, Social History Tobacco Use Types Packs/Day Years Used Date Smoking Tobacco: Some Days Cigarettes 1.4 40.4 Started: 1984 Smokeless Tobacco: Never Tobacco Cessation:Ready to Q uit: Not Asked; Counseling Given: Not Answered Comments:Per lung screening intake forms AUDIT-C Answer Date Recorded Frequency of Alcohol Consumption Not on file 06/02/2023 Q2: How many drinks containi ng alcohol do you have on a typical day when you are drinking? Patient does not drink Frequency of Binge Drinking Not on file 05/09 PHQ-2 Answer Date Recorded PHQ-2 Total Score (If total score is 3 or more points, staff should administer the PHQ-9) 0 06/02/2023 Personal Safety Answer Date Recorded Have you ever been in or are you currently in a harmful physical or emotional relationship or is someone making you feel afraid or unsafe? Denies 06/18/2024 Comments No Sex and Gender Information Value Date Recorded Sex Assigned at Not on file Legal Sex Female 12:38 AM FIBERGLASS CONTAINER WINDING OPERATOR Gender Identity Not on file Sexual Orientation Not on file Last Filed Vital Signs Vital Sign Reading Time Taken Comments Blood Pressure 125/68 06/18/2024 1:20 PM CDT Pulse 61 06/18/2024 1:20 PM CDT Temperature 37 C (98.6 F) 06/18/2024 11:06 AM CDT Respiratory Rate 16 06/18/2024 1:20 PM CDT Oxygen Saturation 96% 06/18/2024 11:06 AM CDT Inhaled Oxygen Concentration - - Weight 63.6 kg (140 lb 3.4 oz) 06/18/2024 11:06 AM CDT Height 162.6 cm (5' 4) 06/18/2024 11:06 AM CDT Body Mass Index 24.07 06/18/2024 11:06 AM CDT Plan of Treatment Not on file Procedures Procedure Name Priority Date/Time Associated Diagnosis Comments CT CHEST WO CONTRAST F/U LUNG SCREEN PROTOCOL Schedule Routine, Read Routine (OP Routine) 12/27/2022 12:14 PM CDT Pulmonary nodules DIAGNOSTIC MAMMOGRAM BILATERAL W ZACK Schedule Routine, Read Routine (OP Routine) 07/08/2022 10:46 AM CDT Breast pain, left HM COLONOSCOPY Routine 11/25/2021 HEPATITIS C ANTIBODY Routine 09/20/2021 11:54 AM FIBERGLASS CONTAINER WINDING OPERATOR Weight loss from Last 3 Months or Most Recently Relevant to Health Maintenance Results * CT Chest WO Contrast F/U Lung Screen Protocol (12/27/2022 12:14 PM CDT) Anatomical Region Laterality Modality Chest N/A Computed Tomogra phy 12/29/2022 6:08 PM CDT Narrative 12/29/2022 6:19 PM CDT EXAM DESCRIPTION: CT CHEST WO CONTRAST F/U LUNG SCREEN PROTOCOL REASON FOR STUDY: Screening CT of the chest in a current smoker with a 38 pack year smoking history. Additional history: This is a follow-up examination 4 bilateral pulmonary nodules. TECHNIQUE: Low dose CT scan of the chest was performed without intravenous contrast using helical scanning technique. The exam extends from the lung apices through the lung bases. Automatic exposure control was used as a dose optimization technique. NOTE: This study was performed for the specific purposes of lung cancer screening and is not an alternative to diagnostic chest CT. RADIATION DOSE: CT dose index volume (CTDIvol) = 2.8 mGy COMPARISON: 03/25/2022 FINDINGS: SMOKING RELATED LUNG DISEASE: Mild emphysema. There is peripheral scarring and paraseptal emphysema. LUNG NODULES: 1. Unchanged 6 mm subpleural pulmonary nodule on image 74 series 3 likely scarring. 2. There is pleural-parenchymal scarring in the periphery the lungs which is somewhat nodular in areas but appears unchanged is very likely fibrotic in nature. 3. There are few small mucous plugs for example 1 on image 68 in the left upper lobe. CORONARY ARTERY CALCIFICATION: Mild OTHER: The heart size at the upper limits of normal. No pericardial effusion. No lymphadenopathy. The mediastinum appears normal. The axilla appears normal. The chest wall appears normal. Cervical fusion is noted. The upper abdomen appears normal. IMPRESSION: Stable small pulmonary nodules. Lung-RADS v1.1 category 2: Benign appearance or behavior. Recommendation: Low dose Screening CT of chest in 12 months. THIS IS AN ELECTRONICALLY VERIFIED FINAL REPORT 12/29/2022 6:19 PM - Electronically signed by Krzysztof Mckeon M.D. KN: JEN Report ID: [id number] Reading Location: [id number] Procedure Note Krzysztof Mckeon MD - 12/29/2022 EXAM DESCRIPTION: CT CHEST WO CONTRAST F/U LUNG SCREEN PROTOCOL REASON FOR STUDY: Screening CT of the chest in a current smoker with a38 pack year smoking history. Additional history: This is a follow-upexamination 4 bilateral pulmonary nodules. TECHNIQUE: Low dose CT scan of the chest was performed without intravenous contrast using helical scanning technique. The exam extends from the lung apices through the lung bases. Automatic exposure control was used as adose optimization technique. NOTE: This study was performed for the specific purposes of lung cancer screening and is not an alternative to diagnostic chest CT. RADIATION DOSE: CT dose index volume (CTDIvol) = 2.8 mGy COMPARISON: 03/25/2022 FINDINGS: SMOKING RELATED LUNG DISEASE: Mild emphysema. There isperipheral scarring and paraseptal emphysema. LUNG NODULES: 1. Unchanged 6 mm subpleural pulmonary nodule on image 74 series 3likely scarring. 2. There is pleural-parenchymal scarring in the periphery the lungswhich is somewhat nodular in areas but appears unchanged is very likely fibrotic in nature. 3. There are few small mucous plugs for example 1 on image 68 in theleft upper lobe. CORONARY ARTERY CALCIFICATION: Mild OTHER: The heart size at the upper limits of normal. No pericardial effusion. No lymphadenopathy. The mediastinum appears normal. Theaxilla appears normal. The chest wall appears normal. Cervical fusion is noted. The upper abdomen appears normal. IMPRESSION: Stable small pulmonary nodules. Lung-RADS v1.1 category 2: Benign appearance or behavior. Recommendation: Low dose Screening CT of chest in 12 months. THIS IS AN ELECTRONICALLY VERIFIED FINAL REPORT 12/29/2022 6:19 PM - Electronically signed by Krzysztof Mckeon M.D. KN: JEN Report ID: [id number] Reading Location: [id number] Morenita Rico MD IMG CT PROCEDURES Final Result * Diagnostic Mammogram Bilateral W Zack (07/08/2022 10:46 AM CDT) Anatomical Region Laterality Modality Breast Bilateral Mammography 07/08/2022 10:4 9 AM CDT Impressions 07/08/2022 10:50 AM CDT 1. No suspicious finding by mammogram to account for the diffuse left breast pain. Clinical follow-up is recommended. Any further evaluation regarding this pain should be based on clinical grounds. 2. No mammographic evidence of malignancy. Routine screening mammogram in 1 year is recommended. The patient has been or will be notified of these findings and impression. She was provided a breast pain handout prior to leaving the department. BIRADS: 1 - Negative THIS IS AN ELECTRONICALLY VERIFIED FINAL REPORT 07/08/2022 10:50 AM - Electronically signed by Warren Mike M.D., MD: Report ID: [id number] Reading Location: [facility] Narrative 07/08/2022 10:50 AM CDT EXAM DESCRIPTION: DIAGNOSTIC MAMMOGRAM BILATERAL W ZACK REASON FOR STUDY: 67-year-old female presents for evaluation of diffuse left breast pain for 1 year and right screening mammogram. COMPARISON: None available, baseline mammogram TECHNIQUE: CC and MLO views of the bilateral breasts were obtained with digital technique using breast tomosynthesis with C view. FINDINGS: DENSITY: There are scattered areas of fibroglandular density. BREASTS: No suspicious masses, suspicious calcifications, or other suspicious findings are seen in either breast. Morenita Rico MD IMG MAMMO PROCEDU RES Final Result * COLONOSCOPY (11/25/2021) Scribed Colonoscopy Normal [facility] Provider HEALTH MAINTENANCE Final Result * Hepatitis C antibody (09/20/2021 11:54 AM FIBERGLASS CONTAINER WINDING OPERATOR) Pathologist [facility] Hep C Ab Nonreactive Nonreactive LYNDON LUCAS Comment: Interpretive Data Nonreactive: Antibodies to HCV not detected. Does NOT exclude the possibility of recent exposure to HCV. Equivocal: Equivocal for HCV antibodies. Supplemental molecular testing will be automatically performed to determine infection status in accordance with current CDC screening recommendations. Reactive: Positive for HCV antibodies. This may represent current or past HCV infection. Supplemental molecular testing will be automatically performed to determine current infection status in accordance with current CDC screening recommendations. Interpretive data was last revised on 2019. Blood 09/20/2021 11:5 4 AM FIBERGLASS CONTAINER WINDING OPERATOR 09/20/2021 6:27 PM FIBERGLASS CONTAINER WINDING OPERATOR Morenita Rico MD LAB MICRO BIOLOGY - GENERAL ORDERABLES Edited Result - Final [facility] [address] [facility] Department [place] [address] from Last 3 Months or Most Recently Relevant to Health Maintenance Insurance [facility] MED[facility] ADVANTAGE [facility] Address: [address] [address] [place] [address] [employer] MEDICARE ADVANTAGE [facility] Address: [address] [address] [place] [address] [employer] [facility] MEDICARE ADVANTAGE [facility] Address: [address] [address] [place] [address] [employer] WORKERS COMPENSATION GENERIC COMPENSATION Advance Directives For more information, please contact: [phone] * Full Code (Latest Code Status on File) Date Activated Date Inactivated Comments 05/23/2022 10:05 AM 05/23/2022 5:45 PM Care Teams Medical Records Clerk Relationship Specialty Start Date End Date Jacinto Johnson MD [address] [facility] [address] [facility] [address] [place] [id number] PCP - General Family Medicine 06/18/24
--- OUTSIDE RECORDS SUMMARY | 2025-02-17 13:10 | XMS_ITS | Clinical Summary ---
Author Organization [facility] [place] [address] [facility] jef Address [address] [facility] [place] [address] Care Team Providers Care Rhinologist Name Role Phone Jacinto Johnson MD Primary Care Provider [phone] [phone] Allergies Active Allergy Reactions Criticality Noted Date [...] seroquel Assessment & Plan (10/04/2021 11:31 AM BARREL ASSEMBLER): Encouraged to schedule with psychiatry Assessment & Plan (09/20/2021 10:55 AM BARREL ASSEMBLER): Denies suicidal ideation Restart seroquel Referral to [...] PCV 13 09/28/2020 Pneumococcal Polysaccharide PPV23 10/04/2021, Surgical History Surgery Date Site/Laterality Comments SPINE SURGERY C Spine HYSTERECTOMY age 19 COLONOSCOPY UPPER GASTROINTESTINAL ENDOSCOPY Medical History Medical History Date Comments Thyroid activity decreased 2016 COPD (chronic obstructive pulmonary disease) (HC C) Abnormal weight loss Food intolerance Trichomonas infection 05/09/2023 Family History Medical History Relation Name Comments Breast cancer Cousin Lung cancer Father Cirrhosis Mother Breast cancer Sister Relation Name Status Comments Cousin Father Mother Sister Social History Tobacco Use Types Packs/Day Years [...] on file Legal Sex Female 12:38 AM BARREL ASSEMBLER Gender Identity Not on file Sexual Orientation Not on file Obstetrics History Para Term AB IAB SAB Ectopic Multiple Livin g Live Births 3 3 3 Date Outcome GA Total Labor Labor/2nd/3rd Weight Sex Type Anes PTL Mary A1 A5 Name Clin Term Term Term Last Filed Vital Signs Vital Sign Reading [...] 06/18/2024 11:06 AM CDT Plan of Treatment Health Maintenance Due Date Last Done Comments Osteoporosis Screening-Bone Density Scan 1955 DTaP/Tdap/Td Vaccine (1 - Tdap) 1965 Hepatitis B Screening 02/08/1972 Zoster Vaccine (1 of 2) 02/08/2004 Breast Cancer Screening-Mammogram 07/08/2023 022 Lung Cancer Screening 12/28/2023 12/27/2022, 022 Covid-19 Vaccine (4 - 2023-2 5 season) 2024 08/08/2021, 11/20/2020, 10/26/2020 Depression Screening 06/02/2024 06/02/2023, 03/05/2023, 01/31/2022, Additional history exists Fall Risk Assessment 06/02/2024 06/02/2023, 03/05/2023, 05/23/2022, Additional history exists Well Visit 65+ 06/02/2024 06/02/2023 Influenza Vaccine (Season Ended) 2025 06/02/2023, 09/11/2022, 08/07/2021, Additional history exists Colon Cancer Screening-Colonoscopy 11/26/20312021 Hepatitis C Screening Completed 09/20/2021 Pneumococcal vaccine 65+ Completed 022, 09/28/2020, 07/25/2014 Procedures Procedure Name Priority Date/Time Associated Diagnosis Comments CT CHEST WO CONTRAST F/U LUNG SCREEN PROTOCOL Schedule Routine, Read Routine (OP Routine) 12/27/2022 12:14 PM CDT Pulmonary nodules DIAGNOSTIC MAMMOGRAM BILATERAL W ZACK Schedule Routine, Read Routine (OP Routine) 07/08/2022 10:46 AM CDT Breast pain, left HM COLONOSCOPY Routine 11/25/2021 HEPATITIS C ANTIBODY Routine 09/20/2021 11:54 AM BARREL ASSEMBLER Weight loss from Last 3 Months or [...] Krzysztof Mckeon M.D. KN: JEN Report ID: [id number] Reading Location: [id number] Procedure Note Krzysztof Mckeon MD - 12/29/2022 [...] Electronically signed by Krzysztof Mckeon M.D. KN: KN Report ID: [id number] Reading Location: [id number] Morenita Rico MD IMG CT PROCEDURES Final Result * Diagnostic Mammogram Bilateral W Azck (07/08/2022 10:46 AM CDT) Anatomical Region Laterality [...] AM - Electronically signed by Warren Mike M.D. MD: Report ID: [id number] Reading Location: [facility] Narrative 07/08/2022 10:50 AM CDT EXAM DESCRIPTION: [...] Result * COLONOSCOPY (11/25/2021) Scribed Colonoscopy Normal Historical Provider HEALTH MAINTENANCE Final Result * Hepatitis C antibody (09/20/2021 11:54 AM BARREL ASSEMBLER) Hep C Ab Nonreactive Nonreactive LYNDON Comment: Interpretive Data Nonreactive: Antibodies to HCV [...] on 2019. Blood 09/20/2021 11:5 4 AM BARREL ASSEMBLER 09/20/2021 6:27 PM BARREL ASSEMBLER Morenita Rico MD LAB MICRO BIOLOGY - GENERAL ORDERABLES Edited Result - Final LYNDON [address] [facility] Department [place] [address] from Last 3 Months or Most Recently Relevant to Health Maintenance Insurance [facility] MEDICARE ADVANTAGE [facility] Address: [address] [address] [place] [address] [employer] MEDICARE ADVANTAGE [employer] MED[employer]ARE ADV[employer]AGE [facility] Address: [address] [address] [place] [address] [employer] WORKERS COMPENSATION GENERIC COMPENSATION Advance Directives For more information, please contact: [phone] * Full Code (Latest Code Status on File) Date Activated Date Inactivated Comments 05/23/2022 10:05 AM 05/23/2022 5:45 PM Care Teams Rhinologist Relationship Specialty Start Date End Date Jacinto Johnson MD [address] [address] PCP - General Family Medicine 06/18/24
[2025-02-17 15:20] LABS: Basophils Percent Auto 0.4 % (0.2-1.2); Eosinophils Absolute Auto 0.1 K/mm3 (0-0.3); Eosinophils Percent Auto 1.4 % (0-4.4); Hemoglobin 12.1 g/dL (12.0-15.0); Immature Granulocyte Absolute 0.01 K/mm3 (0.00-0.031); Immature Granulocyte Percent A 0.2 % (0-0.5); Lymphocytes Absolute Auto 2.62 K/mm3 (0.9-3.2); Lymphocytes Percent Auto 53.8 % (18.3-44.2); Mean Corpuscular Hemoglobin 29.4 pg (26-34); Mean Corpuscular Volume 94.7 fl (80-100); Mean Platelet Volume 10.1 fl (7.4-10.4); Monocytes Absolute Auto 0.4 K/mm3 (0.1-0.6); Monocytes Percent Auto 7.6 % (2.6-8.5); Neutrophils Absolute Auto 1.8 K/mm3 (1.3-6.7); Neutrophils Percent Auto 36.6 % (45.5-73.1); Platelet Count Result 338 k/mm3 (150-375); Red Blood Count 4.12 M/mm3 (4.2-5.4); Red Cell Distribution Width 14.2 % (11.5-14.5); White Blood Count 4.9 K/mm3 (4.5-10.0)
[2025-02-17 15:32] LABS: Hemoglobin A1C 5.5 % (<5.7)
[2025-02-17 15:43] LABS: Alanine Aminotransferase 13 U/L (6-35); Albumin Level 4.3 g/dL (3.5-5.1); Alkaline Phosphatase 91 U/L (38-126); Anion Gap 7 mmol/L (4-12); Aspartate Amino Transferase 24 U/L (14-36); Bilirubin,Total 0.2 mg/dL (0.2-1.3); Blood Urea Nitrogen 9 mg/dL (7-17); Calcium 9.4 mg/dL (8.4-10.2); Carbon Dioxide 30 mmol/L (22-30); Chloride 100 mmol/L (98-107); Estimated Glomerular Filt Rate > 60; Glucose 79 mg/dL (65-110); Potassium 4.2 mmol/L (3.4-5.0); Sodium 137 mmol/L (137-145); Total Protein 7.8 g/dL (6.3-8.2)
[2025-02-17 16:31] LABS: Hepatitis C Virus Antibody Negative (Negative)
== END 2025-02-17 12:54 | disposition home or self-care (01) ==
PROVIDERS: PCP Family Medicine; Visit Provider Registered Nurse
DX: M79.672 Pain in left foot (principal)
CPT/HCPCS: 36415; 73630; 80053; 83036; 85025; 86803